=== PATIENT | female | born 1985 | race Caucasian/White ===

== ENCOUNTER 2019-02-09 09:50 | Emergency (ER) | payer SELFPAY ==
[~2019-02-09] VITALS: Ht 170.2 cm; Wt 95.0 kg
[~2019-02-09 09:50] MED LIST: CEPHALEXIN500 M1 PO; MOTRIN 600600 MG/TAB PO; NORMODYNE100 MG PO; PERCOCET 325 MG1 TA2 PO; ZYRTEC 10MG10 MG PO
[2019-02-09 09:56] VITALS: TEMP 98.2
[2019-02-09 10:17] LABS: COLLECTION METHOD CLEAN CATCH
[2019-02-09 10:22] LABS: MUCOUS Present /lpf; PH 7 (5-8); SQUAMOUS EPITHELIAL 0-2 /hpf; URINE APPEARANCE Clear; URINE BACTERIA Rare /hpf; URINE BILIRUBIN Negative (NEGATIVE); URINE BLOOD Negative (NEGATIVE); URINE COLOR Colorless; URINE GLUCOSE Negative (NEGATIVE); URINE KETONE Negative (NEGATIVE); URINE LEUKOCYTE ESTERASE Negative (NEGATIVE); URINE NITRATE Negative (NEGATIVE); URINE PROTEIN(semi-quant) Negative (NEGATIVE); URINE RBC 0-2 /hpf; URINE UROBILINOGEN Negative (NEGATIVE)
[2019-02-09 10:45] LABS: BASO % 0.2 % (0.0-2.0); EOS % 0.4 % (0-4.0); GRAN # 5.7 (1.4-6.5); GRAN % 70.3 % (42.2-75.2); HEMATOCRIT 38.7 % (37.0-47.0); HEMOGLOBIN 13.1 g/dl (12.5-16.0); LYMPH % 24.5 % (20.0-51.0); MEAN CELL VOLUME 85 fl (80.0-100.0); MEAN CORPUSCULAR HEMOGLOBIN 29 pg (27.0-31.0); MEAN CORPUSCULAR HGB CONC 34 g/dl (33.0-37.0); MEAN PLATELET VOLUME 11.5 fl (7.4-10.4); MONO # 0.4 (0.1-0.6); MONO % 4.4 % (1.7-9.3); PLATELET COUNT 232 K/mm3 (130-400); RED BLOOD COUNT 4.58 M/mm3 (4.10-5.30); REDCELL DISTRIBUTION WIDTH-CV 12.6 % (11.5-14.5)
[2019-02-09 10:55] LABS: ALBUMIN 4.3 gm/dL (3.5-5.0); BILIRUBIN,TOTAL 0.3 mg/dL (0.0-1.0); CALCIUM 9.7 mg/dL (8.4-10.2); CREATININE, serum 0.63 (0.52-1.25); POTASSIUM 3.8 mmol/L (3.4-5.0); TOTAL PROTEIN 7.3 gm/dL (6.4-8.2)
[2019-02-09] MEDS ORDERED: PRINIVIL10 MG PO (11:30)
[2019-02-09 12:05] VITALS: BP 130/90; PULSE 108
== END 2019-02-09 12:03 | disposition home or self-care (01) ==
LOC: COL.ER 09:50
PROVIDERS: Physician Assistant
DX: I10 Essential (primary) hypertension (principal); Z91.14 Patient's other noncompliance with medication regimen

== ENCOUNTER → 2019-04-10 | Outpatient (CLI) | payer BC, OTHER ==
[~2019-04-10] MED LIST changes: +PRINIVIL10 MG PO
== END ==
LOC: COL.RAD 15:00
DX: R10.9 Unspecified abdominal pain (principal); Z53.9 Procedure and treatment not carried out, unspecified reason

== ENCOUNTER → 2019-05-26 | Outpatient (CLI) | payer BC | LOC: COL.RAD 12:01 | DX: K57.30 Diverticulosis of large intestine without perforation or abscess without bleeding (principal); N13.0 Hydronephrosis with ureteropelvic junction obstruction ==